=== PATIENT | female | born 1945 | race African-American/Black ===

== ENCOUNTER → 2020-09-23 | Outpatient (CLI) | payer OTHER | LOC: SJCVC 13:11 | PROVIDERS: ATTEND Internal Medicine | DX: I10 Essential (primary) hypertension (principal); R00.0 Tachycardia, unspecified; E78.5 Hyperlipidemia, unspecified; I05.9 Rheumatic mitral valve disease, unspecified; D50.9 Iron deficiency anemia, unspecified; Z86.16 Personal history of COVID-19; E03.9 Hypothyroidism, unspecified; Z90.710 Acquired absence of both cervix and uterus; Z98.890 Other specified postprocedural states; Z88.8 Allergy status to other drugs, medicaments and biological substances; Z79.82 Long term (current) use of aspirin; Z79.899 Other long term (current) drug therapy; Z87.891 Personal history of nicotine dependence; Z82.49 Family history of ischemic heart disease and other diseases of the circulatory system ==

== ENCOUNTER → 2020-10-07 | Outpatient (CLI) | payer OTHER | LOC: SJCVCIMAG 09-30 11:06 | PROVIDERS: ATTEND Internal Medicine | DX: I08.3 Combined rheumatic disorders of mitral, aortic and tricuspid valves (principal); I11.9 Hypertensive heart disease without heart failure; Z79.899 Other long term (current) drug therapy; Z86.16 Personal history of COVID-19 ==

== ENCOUNTER 2021-04-20 07:30 | Inpatient (IN) | payer OTHER ==
[~2021-04-20] VITALS: Ht 165.1 cm; Wt 88.4 kg
[2021-04-20 07:50] VITALS: BP 157/81
[2021-04-20 08:15] LABS: ABSOLUTE NEUTROPHILS 5.7 thou/uL (1.4-8.2); BASOPHILS 0.7 % (0.0-2.0); EOSINOPHILS 1.2 % (0.0-3.0); HEMATOCRIT 36.7 % (37.0-47.0); HEMOGLOBIN 11.9 gm/dL (12.0-15.0); LYMPHOCYTES 26.7 % (24.0-44.0); MCHC 32.5 g/dL (28.0-37.0); MCV 92.3 fL (80.0-100.0); MONOCYTES 7.5 % (1.0-8.0); PLATELET COUNT 240 thou/uL (150-400); POLYS 63.9 % (36.0-66.0); RBC 3.98 mil/uL (4.20-5.00); RDW 14.3 % (10.5-14.5); WBC 8.9 thou/uL (4.0-11.0)
[2021-04-20 08:23] LABS: CALCIUM 9.3 mg/dL (8.5-10.1); CREATININE 0.8 mg/dL (0.6-1.0); POTASSIUM 3.9 mmol/L (3.5-5.1)
[2021-04-20 08:30] LABS: ALBUMIN 3.2 g/dL (3.4-5.0); TOTAL BILIRUBIN 0.3 mg/dL (0.2-1.0); TOTAL PROTEIN 7.5 g/dL (6.4-8.2)
[2021-04-20 09:56] LABS: URINE BILIRUBIN NEGATIVE (Negative); URINE BLOOD NEGATIVE (Negative); URINE CLARITY CLEAR; URINE COLOR YELLOW; URINE GLUCOSE-RANDOM* NEGATIVE (Negative); URINE KETONES NEGATIVE (Negative); URINE LEUKOCYTES-REFLEX NEGATIVE (Negative); URINE NITRITE-REFLEX NEGATIVE (Negative); URINE PROTEIN (DIPSTICK) NEGATIVE (Negative); URINE UROBILINOGEN 0.2 E.U./dl (0.2-1.0)
--- NOTE | 2021-04-21 04:49 | NUR ---
ASSUMED CARE OF PATIENT AT 2030. PATIENT RESTING IN BEDSIDE CHAIR WITH DAQUGHTER AT HER SIDE. PATIENT IS AOOX4. STATES THAT SHE IS FEELING OKAY AT THIS TIME BUT PAIN IN HER ABDOMEN COMES AND GOES. HER VITAL SIGNS ARE STABLE. PATIENT IS COOPERATIVE AND FOLLOWING COMMANDS. NOT LONG AFTER RN LEFT THE ROOM PATIENTS DAUGHTER CAME OUT AND SAID THAT HER MOTHER WAS NOW HURTING. PT STATES THAT SHE STARTED TO HAVE A SGARP PAIN IN HER EPIGASTRIC REGION. PRN MEDICATION ADMINISTERED. PATIENT WAS ASSISTED TO HER BED PATIENT HAS SLOW SHUFFLING GATE. NO DISTRESS NOTED AT THIS TIME. WILL CONTINUE TO MONITOR.
[2021-04-21 05:27] LABS: CALCIUM 8.7 mg/dL (8.5-10.1); CREATININE 0.6 mg/dL (0.6-1.0); POTASSIUM 3.7 mmol/L (3.5-5.1)
[2021-04-21 05:34] LABS: HEMATOCRIT 33.4 % (37.0-47.0); HEMOGLOBIN 11.2 gm/dL (12.0-15.0); MCH 30.6 pg (26.0-34.0); MCHC 33.4 g/dL (28.0-37.0); MCV 91.8 fL (80.0-100.0); RBC 3.64 mil/uL (4.20-5.00); WBC 6.5 thou/uL (4.0-11.0)
[2021-04-21 09:34] VITALS: BP 155/67
[2021-04-21 20:23] VITALS: BP 160/71
--- NOTE | 2021-04-22 02:14 | NUR ---
ASSUMED CARE OF PT AT 1900. ASSESSED AT START OF SHIFT. PT RESTING IN BED. NG TUBE TO RT NARES ON LOW INT SUCTION. NPO MAINTAINED. FOLLEY INTACT TO D/D/ IV IN PLACE AND FLUIDS INFUSING. MORPHINE GIVEN FOR ABD PAIN. DRESSING C/D/I. WILL CONT WITH POC TILL EOS.
[2021-04-22 03:32] VITALS: BP 124/52
[2021-04-22 07:14] VITALS: BP 142/63
--- NOTE | 2021-04-22 09:31 | NUR ---
Chart review, CM visited with patient at bedside, noted she has ng with some green Drainage in tubing. Intro to cm and dcp. Sara a & o x 3, pleasant with some forgetfulness at time. Lives at [facility] on 1st floor 6 steps to enter or use the elevator. Have cane and 2 or 3 walkers, one was my sons who passed about this past January 2021, cm passed on support and active listen during visit. Independent in apartment, no longer drive, sergey marroquin drives me places and takes me to appointments. not vaccinated for covid, had covid in the past. no skilled rehab in the past, ok with [facility] is who had in the past per Sara. CM spoke with sergey marroquin # [phone] via phone call, requested that with [facility] be [facility] up for dc. Possible ready for d/c on Sunday04/25/21. New orders for pt and ot. referral sent to [facility] phone # [phone], fax [phone]. DCP: home with [facility] , fax dc order and pt/ot eval notes on day of dc.
--- NOTE | 2021-04-22 10:21 | NUR ---
A/O X 4. 2L via nasal cannula. NG tube right nare- green drainage noted. 3 ABD lap sites covered, midline dressing dry, clean and intact. IV left Hand with NS @ 100 mls/hr. Her daughter came up to visit. Still NPO.
[2021-04-22 14:10] VITALS: BP 142/63
[2021-04-22 15:36] VITALS: BP 141/67
[2021-04-22 20:51] VITALS: BP 158/67
--- NOTE | 2021-04-23 01:32 | NUR ---
ASSESSED AT START OF SHIFT. PT RESTING IN BED. NG Tube TO RT NARES AND ON LOW INTERMITENT SUCTION. PT REQUESTED PAIN MEDS. IV MORPHINE GIVEN. FOLLEY INTACT. NPO MAINTAINED. FALL PREC IN PLACE AND CALL LIGHT AT REACH WILL CONT TO MONITOR.
[2021-04-23 07:15] VITALS: BP 152/78
--- NOTE | 2021-04-23 09:24 | NUR ---
Assumed care of pt at 0700. Pt a&ox4. Dressing c/d/i. NG tube in place. Low-intermittent suction. Fulton catheter in place. IVF infusing. NPO. Pain controlled. Call light within reach. Will continue to monitor.
[2021-04-23 09:36] LABS: ABSOLUTE NEUTROPHILS 12.9 thou/uL (1.4-8.2); BASOPHILS 0.1 % (0.0-2.0); HEMATOCRIT 32.4 % (37.0-47.0); HEMOGLOBIN 10.5 gm/dL (12.0-15.0); LYMPHOCYTES 9.7 % (24.0-44.0); MCH 29.8 pg (26.0-34.0); MCHC 32.5 g/dL (28.0-37.0); MCV 91.8 fL (80.0-100.0); MONOCYTES 6.6 % (1.0-8.0); PLATELET COUNT 221 thou/uL (150-400); POLYS 83.6 % (36.0-66.0); RBC 3.53 mil/uL (4.20-5.00); RDW 14.3 % (10.5-14.5); WBC 15.4 thou/uL (4.0-11.0)
[2021-04-23 09:48] LABS: CALCIUM 8.8 mg/dL (8.5-10.1); CREATININE 0.7 mg/dL (0.6-1.0); POTASSIUM 3.5 mmol/L (3.5-5.1)
[2021-04-23 09:56] LABS: ALBUMIN 2.2 g/dL (3.4-5.0); MAGNESIUM 1.8 mg/dL (1.8-2.4); TOTAL BILIRUBIN 0.4 mg/dL (0.2-1.0); TOTAL PROTEIN 6.5 g/dL (6.4-8.2)
[2021-04-23] MEDS ORDERED: BIMATOPROST2.5 ML OPHTHALMIC (13:45)
[2021-04-23] MEDS ORDERED: FLONASE 0.05%50 MCG NASAL (13:46)
[2021-04-23] MEDS ORDERED: BENICAR20 MG PO (13:46)
[2021-04-23] MEDS ORDERED: HYDROCHLOROTH12.5 M2 PO (13:46)
[2021-04-23] MEDS ORDERED: PROTONIX40 M2 PO (13:47)
[2021-04-23] MEDS ORDERED: KLOR-CON M2020 MEQ PO (13:47)
[2021-04-23] MEDS ORDERED: SIMVASTATIN80 MG PO (13:48)
[2021-04-23 15:30] VITALS: BP 154/78
[2021-04-23 19:40] VITALS: BP 190/97
[2021-04-24] VITALS (8 sets, daily range): BP systolic 141–176; BP diastolic 33–89
--- NOTE | 2021-04-24 02:16 | NUR ---
ASSUMED CARE OF PT AT 1900. BEDSIDE REPORT RECIEVED. INDIGO ASSESSMENT COMPLETE. PT C/O GENERALIZED MALAISE. PT FEBRILE AND MODERATELY HYPERTENSIVE, PRN TYLENOL AND HYRDALAZINE ADNMINISTERED C SCHEDULED MEDS. RECHECKED BP AND TEMP BP 148/87, T 98.9.HYPOACTIVE BS. NG TUBE REMOVED DURING DAY SHIFT. IVF RUNNING PER DAVID. PT ASSISTED C REPOSITIONING FOR COMOFORT. CALL LIGHT IN REACH.
[2021-04-24 05:30] LABS: ABSOLUTE NEUTROPHILS 10.5 thou/uL (1.4-8.2); BASOPHILS 0.2 % (0.0-2.0); HEMATOCRIT 33.2 % (37.0-47.0); HEMOGLOBIN 10.4 gm/dL (12.0-15.0); LYMPHOCYTES 9.8 % (24.0-44.0); MCH 29.1 pg (26.0-34.0); MCHC 31.5 g/dL (28.0-37.0); MCV 92.3 fL (80.0-100.0); MONOCYTES 4.1 % (1.0-8.0); PLATELET COUNT 260 thou/uL (150-400); POLYS 85.9 % (36.0-66.0); RBC 3.59 mil/uL (4.20-5.00); RDW 14.5 % (10.5-14.5); WBC 12.3 thou/uL (4.0-11.0)
[2021-04-24 06:06] LABS: ALBUMIN 2.1 g/dL (3.4-5.0); CALCIUM 8.8 mg/dL (8.5-10.1); CREATININE 0.7 mg/dL (0.6-1.0); MAGNESIUM 1.9 mg/dL (1.8-2.4); PHOSPHORUS 1.5 mg/dL (2.5-4.9); POTASSIUM 3.4 mmol/L (3.5-5.1); TOTAL BILIRUBIN 0.4 mg/dL (0.2-1.0); TOTAL PROTEIN 6.6 g/dL (6.4-8.2)
[2021-04-24 08:56] LABS: BE(vivo) 4.4 mmol/L (-2 to +3); HCO3 28.6 mmol/L (22.0-26.0); PCO2 40.9 mmHg (35.0-45.0); pH 7.462 (7.360-7.450); sO2 90.1 % (92.0-98.0)
[2021-04-24 08:57] LABS: PO2 54.7 mmHg (80.0-100.0)
[2021-04-24 14:52] LABS: HEMATOCRIT 32.6 % (37.0-47.0); HEMOGLOBIN 10.7 gm/dL (12.0-15.0); MCH 30.3 pg (26.0-34.0); MCHC 32.8 g/dL (28.0-37.0); MCV 92.2 fL (80.0-100.0); RBC 3.53 mil/uL (4.20-5.00); RDW 14.3 % (10.5-14.5); WBC 9.9 thou/uL (4.0-11.0)
[2021-04-24 15:11] LABS: APTT 31.5 Seconds (24.5-32.8); INR 1.02; PROTIME 11.1 Seconds (10.5-12.1)
--- NOTE | 2021-04-24 15:46 | 2DMMODE ---
[facility] [place] [address] 2 D/M-MODE ECHOCARDIOGRAM Name: OSVALDO WAN Room #: 206-P ADM IN M.R.#: [id number] Admission: 04/20/21 Attend Phys: Abimael Cash MD Discharge: Date of : 43 Report #: [id number] THIS REPORT FOR: cc: Carine Zeng Beth RNP Lammoglia, Francisco J. MD ~ APPROVED REPORT Study performed: 04/24/2021 14:53:46 EXAM: Comprehensive 2D, Doppler, and color-flow Echocardiogram Patient Location: Bedside Room #: 206 Status: on-call BSA: 2.23 HR: 116 bpm BP: 141/67 mmHg Rhythm: Tachycardia Other Information Study Quality: Adequate Indications Abnormal ECG Elevated Troponin Tachycardia 2D Dimensions IVSd: 13.31 (7-11mm) LVOT Diam: 20.00 (18-24mm) LVDd: 44.30 mm PWd: 12.97 (7-11mm) Ascending Ao: 25.65 (22-36mm) LVDs: 28.96 (25-40mm) Aortic Root: 27.95 mm LV Single Plane 4CH: 61.78 % LV Single Plane 2CH: 62.87 % Volumes Left Atrial Volume (Systole) Single Plane 4CH: 55.66 mL Single Plane 2CH: 64.21 mL LA ESV Index: 38.00 mL/m2 Aortic Valve AoV Peak Jonathan.: 2.03 m/s AO Peak Gr.: 16.50 mmHg LVOT Max P.72 mmHg [facility] [address] [place] [address] 2 D/M-MODE ECHOCARDIOGRAM Name: OSVALDO WAN Room #: 206-P [facility] IN ..#: [id number] Admission: 04/20/21 Attend Phys: Kari Molina Discharge: Date of : 43 Report #: [id number] LVOT Max V: 1.30 m/s JENNA Vmax: 2.03 cm2 Mitral Valve E/A Ratio: 0.6 MV Decel. Time: 115.78 ms MV E Max Jonathan.: 0.86 m/s MV A Jonathan.: 1.39 m/s MV PHT: 33.58 ms IVRT: 86.51 ms TDI E/Lateral E': 14.33 E/Medial E': 12.29 Medial E' Jonathan.: 0.07 m/s Lateral E' Jonathan.: 0.06 m/s Pulmonary Valve PV Peak Jonathan.: 1.25 m/s PV Peak Gr.: 6.25 mmHg Tricuspid Valve TR Peak Jonathan.: 2.78 m/s TR Peak Gr.: 30.92 mmHg Left Ventricle The left ventricle is normal size. There is normal LV segmental wall motion. Mild concentric left ventricular hypertrophy. Left ventricular systolic function is normal. The left ventricular ejection fraction is within the normal range. LVEF is 60-65%. Mild diastolic dysfunction is present (impaired relaxation pattern). Right Ventricle The right ventricle is normal size. The right ventricular systolic function is normal. Atria The left atrium size is normal. The right atrium size is normal. Aortic Valve The aortic valve is normal in structure. No aortic regurgitation is present. There is no aortic valvular stenosis. Mitral Valve The mitral valve is normal in structure. There is no mitral valve regurgitation noted. No evidence of mitral valve stenosis. [facility] [place] [address] 2 D/M-MODE ECHOCARDIOGRAM Name: OSVALDO WAN Room #: 206-P [facility] IN .R.#: [id number] Admission: 04/20/21 Attend Phys: Kari Molina Discharge: Date of : 43 Report #: [id number] Tricuspid Valve The tricuspid valve is normal in structure. Trace tricuspid regurgitation. Tricuspid regurgitant jet is 31 mmHg. Unable to assess PA pressure. Pulmonic Valve The pulmonary valve is normal in structure. There is no pulmonic valvular regurgitation. Great Vessels The aortic root is normal in size. Ascending aorta is not well visualized. IVC is not well visualized. Pericardium There is no pericardial effusion. <Conclusion> The left ventricle is normal size. Mild concentric left ventricular hypertrophy. There is normal LV segmental wall motion. LVEF is 60-65%. The right ventricle is normal size. The aortic valve is normal in structure. The mitral valve is normal in structure. The tricuspid valve is normal in structure. Trace tricuspid regurgitation. Tricuspid regurgitant jet is 31 mmHg. Unable to assess PA pressure. The pulmonary valve is normal in structure. The aortic root is normal in size. There is no pericardial effusion. <ELECTRONICALLY SIGNED> By: Db Cruz MD 04/24/21 1546 1546 1546 Db Cruz MD /INF
[2021-04-24 16:02] LABS: CALCIUM 8.7 mg/dL (8.5-10.1); CREATININE 0.7 mg/dL (0.6-1.0); MAGNESIUM 1.9 mg/dL (1.8-2.4); PHOSPHORUS 3.2 mg/dL (2.6-4.7); POTASSIUM 3.5 mmol/L (3.5-5.1)
--- NOTE | 2021-04-24 16:48 | NUR ---
DISCUSSED PICC PLACEMENT, RISKS AND BENIFITS WITH THE PATIENT AND HER DAUGHTER. THE BOTH VERBALIZED UNDERSTANDING. THE RIGHT BASILIC VEIN WAS WIDLEY PATENT. A #5F DOUBLE LUMEN PICC WAS PLACED AFTER A BEDSIDE TIMEOUT WAS COMPLETED PER HOSPITAL POLICY. THE LINE WAS TRIMMED TO 46CM AND ADVANCED TO 3CM EXTERNAL WITHOUT DIFFICULTY. THE LINE WAS CONFIRMED AT 3CM EXTERNAL WITH SHERLOCK 3CG. LINE WAS RELEASED FOR USE
[2021-04-24 17:16] LABS: HEMATOCRIT 26.4 % (37.0-47.0); HEMOGLOBIN 8.8 gm/dL (12.0-15.0)
--- NOTE | 2021-04-24 18:23 | O ---
[facility] [place] [address] OPERATIVE REPORT Name: OSVALDO WAN Room #: 206-P ADM IN M.R.#: [id number] Admission: 04/20/21 Attend Phys: Abimael Cash MD Discharge: Date of : 43 Report #: [id number] THIS REPORT FOR: cc: Carine Zeng Beth RNP Patterson, Jonathan D. MD ~ DATE OF SERVICE: 04/21/2021 PREOPERATIVE DIAGNOSIS: Small-bowel obstruction. POSTOPERATIVE DIAGNOSIS: Small-bowel obstruction. OPERATIONS: 1. Diagnostic laparoscopy. 2. Exploratory laparotomy. 3. Small bowel resection with single anastomosis. 4. Open repair of recurrent incarcerated ventral incisional hernia without mesh. SURGEON: Silver Tracy MD ANESTHESIA: General. ESTIMATED BLOOD LOSS: Minimal. SPECIMENS: 1. Small bowel. 2. Intraabdominal mesh. DESCRIPTION OF PROCEDURE: After informed consent was obtained, the patient was brought to the operating room and placed supine. SCDs were placed and working, preoperative antibiotics were administered, general anesthesia was induced. The abdomen was prepped and draped in the usual sterile fashion. A 5 mm incision was made in the left upper quadrant. A 5 mm trocar was placed under direct vision. Pneumoperitoneum was established. A two left-sided 5 mm trocars were placed. I was able to visualize the small bowel. I ran the small bowel proximally and distally. In the lower abdomen in the midline, there was small bowel adherent to a mass. This mass ended up being a meshoma. At this point, I elected to remove the laparoscope and open the procedure. The laparoscope was then removed. I made a midline incision from above the umbilicus down toward the pubis. The fascia was incised. At this point, I was able to run the bowel proximally and distally from the cecum to the ligament of Treitz. In the distal jejunum, there was a wad of small bowel that was adherent to exposed mesh. Pictures were taken of this. The mesh was wadded up into a ball and exposed inside the peritoneal cavity. I was able to free up the mesh [facility] [address] [place] [address] OPERATIVE REPORT Name: OSVALDO WAN Room #: 206-P ADM IN M.R.#: [id number] Admission: 04/20/21 Attend Phys: Abimael Cash MD Discharge: Date of : 43 Report #: [id number] from the abdominal wall by sharply dissecting away using heavy scissors. There was no way that the bowel could be preserved with this mesh. Therefore, I elected to resect this segment. The small bowel was then transected proximally and distally. Distally, there was approximately 20 cm left before I reached the cecum. Proximally, there was approximately 150 cm of small bowel from the ligament of Treitz down to the area of the meshoma. This was stapled with a TALITA blue load stapler. I then ligated the mesentery using the LigaSure device and then specimens were sent off. A ojvo-mz-talo functional end-to-end anastomosis of the small bowel was undertaken. This was done with a TALITA blue load 75 stapler. The bowel was brought into apposition in [id number] and stapled. The common enteroenterostomy was stapled with a TALITA blue load stapler as well. The abdomen was then copiously irrigated with normal saline. I then reapproximated the fascia using #1 looped PDS. This closed the recurrent hernia without mesh. I did not think it would be safe to place mesh given that there was some spillage of bowel contents. The skin was then closed with mane. Sterile dressings were applied. COMPLICATIONS: None. DISPOSITION: The patient was taken to recovery in satisfactory condition. <ELECTRONICALLY SIGNED> By: Silver Tracy MD 04/24/21 1823 1816 1835 Silver Tracy MD /nt
--- NOTE | 2021-04-24 18:23 | NUR ---
Received pt to room 206 from 4S. Tele monitor placed, educated to rules of the floor. Pt A&O x4, on 5L NC sating 100%. Pt spitting up dark green saliva. Report pain 5/10 in abdominal area. Pt began puking coffee-ground emesis. Dr. Houser on floor & notified. Tachy on monitor, resp rate increased. Pt sent for STAT CTA which showed small Rt lower lobe PE; Venous duplex of LE neg for DVT; echocardiogram ordered which showed no acute findings. Pt sent for STAT EGD, removed 800mL coffee-ground fluid. Received pt back from EGD, stating she felt better, decreased O2 to 2L NC, sating 100%, resp rate down. Pt getting frequent hiccups which is hurting incision site, given PRN pain medication. Fulton in place & patent w/ tea colored urine. All questions answered at this time.
[2021-04-25] VITALS (8 sets, daily range): BP systolic 124–167; BP diastolic 64–121
[2021-04-25 00:16] LABS: ICTOTEST (BILI CONFIRMATORY) Negative (Negative); URINE BILIRUBIN NEGATIVE (Negative); URINE BLOOD TRACE (Negative); URINE CLARITY SL CLOUDY; URINE COLOR YELLOW; URINE GLUCOSE-RANDOM* NEGATIVE (Negative); URINE KETONES 2+ (Negative); URINE LEUKOCYTES-REFLEX NEGATIVE (Negative); URINE NITRITE-REFLEX NEGATIVE (Negative); URINE PROTEIN (DIPSTICK) 2+ (Negative); URINE UROBILINOGEN 0.2 E.U./dl (0.2-1.0)
[2021-04-25 00:33] LABS: CASTS None Seen /LPF (None Seen); MUCUS 0-3 Light strn/LPF (None Seen); SQUAMOUS 4-10 Moderate /LPF (0-3); URINE RBC 1-2 Rare /HPF (NONE SEEN); URINE WBC-REFLEX 0-5 Rare /HPF (0-5)
[2021-04-25 00:34] LABS: AMORPHOUS URATES Few /LPF (None Seen); BACTERIA-REFLEX 1-9 Few /HPF (None Seen); CRYSTALS None Seen /LPF (None Seen)
[2021-04-25 06:34] LABS: HEMATOCRIT 29.4 % (37.0-47.0); HEMOGLOBIN 9.7 gm/dL (12.0-15.0); MCH 30.3 pg (26.0-34.0); MCV 91.9 fL (80.0-100.0); RBC 3.2 mil/uL (4.20-5.00); RDW 14.5 % (10.5-14.5); WBC 7.2 thou/uL (4.0-11.0)
[2021-04-25 06:47] LABS: ALBUMIN 1.9 g/dL (3.4-5.0); CALCIUM 8.8 mg/dL (8.5-10.1); CREATININE 0.7 mg/dL (0.6-1.0); MAGNESIUM 2.3 mg/dL (1.8-2.4); PHOSPHORUS 2.8 mg/dL (2.5-4.9); POTASSIUM 3.6 mmol/L (3.5-5.1); TOTAL BILIRUBIN 0.3 mg/dL (0.2-1.0); TOTAL PROTEIN 6.5 g/dL (6.4-8.2)
--- NOTE | 2021-04-25 07:25 | NUR ---
SLEPT PART OF SHIFT. MOVES AROUND IN BED AND CAN TURN SELF. 2300 STAT ORDERS FROM COMPLETED, EKG DONE AND SHOWN TO COVER MAKER. SEVERE NAUSEA AND ZOFRAN ORDERED. QTC 400'S. DENIES COMPLAINTS OF PAIN OR NEED FOR ANY MEDICATION. N/V ON AND OFF THIS NOC WITH RELIEF FROM MEDS. COVER MAKER KEPT UPDATED ON STATUS. STATES FEELS BETTER THIS AM. WORKING ON GOALS AND PLAN OF CARE FOR NOC. CONTINUE TO ASSES CLOSELY.
--- NOTE | 2021-04-25 18:35 | NUR ---
PATIENT STARTED HAVING NAUSEA THIS PM. ZOFRAN PRN GIVEN AND IT WAS SOMEWHAT EFFECTIVE. PT IS NOW RESTING IN BED. PLEASANT WITH CARE. WILL CONT PLAN OF CARE.
[2021-04-25 23:30] LABS: HEMATOCRIT 30.4 % (37.0-47.0); HEMOGLOBIN 9.7 gm/dL (12.0-15.0)
[2021-04-26] VITALS (7 sets, daily range): BP systolic 124–185; BP diastolic 58–78
[2021-04-26 01:13] LABS: CALCIUM 9.2 mg/dL (8.5-10.1); CREATININE 0.7 mg/dL (0.6-1.0); MAGNESIUM 1.9 mg/dL (1.8-2.4); PHOSPHORUS 2.4 mg/dL (2.6-4.7); POTASSIUM 3.6 mmol/L (3.5-5.1)
--- NOTE | 2021-04-26 03:30 | NUR ---
2008 HR 120-130'S MOST OF DAY. NOTIFIED DR. OLIVAREZ AND RESTARTED METOPROLOL IVP DUE TO NPO. PATIENT REMAINS NAUSEATED. 2009 MESSAGE TO CALL DAUGHTER. DAUGHTER UPSET WITH BATTERY RECHARGER FROM DAY SHIFT. SPOKE WITH HER FOR 15 MIN AND REASSURED WOULD GIVE INFOR TO DAY NURSE AND DREDGE OPERATOR. DAUGHTER THANKED NURSE FOR TIME AND LISTENING. 0115 N/V LARGE AMOUNT BILE LIQUID EVERY WHERE. NOTIFIED OIL HEATERMAN AND ONE TIME DOSE COMPAZINE GIVEN. 0330 SLEEPING WITHOUT COMPLAINTS AT THIS TIME. DENIES NEED FOR PRESENT MEDICATIONS. ENCOURAGED TO TAKE SIPS ONLY OF LIQUIDS. WORKING ON GOALS AND PLAN OF CARE FOR NOC. CONTINUE TO ASSES CLOSELY.
--- NOTE | 2021-04-26 07:34 | EKG ---
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 : 1945 Requested By: Nivia Houser Order Number: [id number] : Barry Fraser Measurements Intervals [place] Rate: 118 P: 78 VT: 146 QRS: 30 QRSD: 85 T: -21 QT: 294 QTc: 412 Interpretive Statements Sinus tachycardia Probable left atrial enlargement Borderline T abnormalities, inferior leads No previous ECG available for comparison Electronically Signed On 04-26-2021 7:33:56 CDT by Barry Fraser [email or web address] <ELECTRONICALLY SIGNED> By: Barry Fraser MD, [facility] 04/26/21 0733 1218 1218 Barry Fraser MD, FACC /EPI
--- NOTE | 2021-04-26 07:37 | EKG ---
[address] [place] [address] ELECTROCARDIOGRAM REPORT Name: OSVALDO WAN Room #: 206-P ADM IN M.R.#: [id number] Admission: 04/20/21 Attend Phys: Abimael Cash MD Discharge: Date of : 43 Report #: [id number] 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 : 1945 Requested By: Nivia Houser Order Number: [id number] MD: Barry Fraser Measurements Intervals [place] Rate: 129 P: 147 AK: 124 QRS: 35 QRSD: 89 T: 54 QT: 426 QTc: 625 Interpretive Statements Sinus tachycardia Probable left atrial enlargement Probable inferior infarct Compared to ECG 04/23/2021 12:18:54 Myocardial infarct finding now present Sinus tachycardia no longer present T-wave abnormality no longer present Electronically Signed On 04-26-2021 7:36:48 CDT by Barry Fraser [email or web address] <ELECTRONICALLY SIGNED> By: Barry Fraser MD, [facility] 04/26/21 0736 2 2 Barry Fraser MD, [facility] /EPI
--- NOTE | 2021-04-26 07:38 | EKG ---
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: 2N : 1945 Requested By: Nivia Houser Order Number: [id number] MD: Barry Fraser Measurements Intervals [place] Rate: 114 P: [place]: QRS: 30 QRSD: 89 T: -45 QT: 309 QTc: 426 Interpretive Statements NSR Borderline repolarization abnormality IWMI, old Compared to ECG 04/24/2021 08:33:36 Prolonged QT interval no longer present Electronically Signed On 04-26-2021 7:38:48 CDT by Barry Fraser [email or web address] <ELECTRONICALLY SIGNED> By: Barry Fraser MD, [facility] 04/26/21 0738 00 00 Barry Fraser MD, FACC /EPI
[2021-04-26 17:23] LABS: HEMOGLOBIN 10.7 gm/dL (12.0-15.0)
--- NOTE | 2021-04-26 18:06 | PATH ---
[facility] [place] [address] PATHOLOGY RPT PROCEDURE Name: SARA ARAMBULA Room #: 206-P ADM IN M.R.#: [id number] Admission: 04/20/21 Date of : 43 Discharge: Report #: [id number] Path Case #: [id number] [facility] Accession Number: [id number] . 01 Material submitted: . PART A: small bowel - SMALL BOWEL PART B: abdomen - ABDOMINAL FOREIGN BODY . 01 Clinical history: . LAPAROSCOPY-DIAGNOSTIC LAPAROSCOPIC CONVERT TO OPEN SMALL BOWEL RESECTION SMALL BOWEL OBSTRUCTION RECURRENT VENTRAL HERNIA . 02 Diagnosis: A. Small bowel, resection: - Transmural defect, consistent with perforation as well as adherent small bowel pedroza. - Ischemic bowel along with congestion and extensive hemorrhage adjacent to perforation and adhesion. - Fibroadipose tissue adjacent to small bowel with mesh material and reparative changes. - Omental fat with reactive changes. - Three reactive lymph nodes. - Margins of resection showing viable mucosa. . B. Abdominal foreign body, removal: - 3.7 x 2.6 x 1.3 cm [place] mesh-like material. - 2.9 x 2.0 cm small bowel showing marked serositis as well as changes consistent with perforation. - Margins viable and unremarkable. (IUV/db; 04/26/2021) LBQ 04/26/2021 1721 Local . 02 Electronically signed: . Fanta Vaca MD, Pathologist NPI- [id number] . 01 Gross description: . A. The specimen is received in formalin, labeled "Sara Arambula, small bowel" and consists of an unoriented portion of small bowel (82.5 cm in length by 1.7 cm diameter), with one stapled end (inked black) and one open end (inked blue), with a moderate amount of attached fat and portion of omentum (7.5 x 7.0 x 3.8 cm). The serosa is predominantly york, smooth and dusky, with a charlton-brown and hemorrhagic dusky area (9.0 x 2.5 cm) that surrounds a heavily disrupted transmural defect (approximately 5.5 x [facility] [address] [place] [address] PATHOLOGY RPT PROCEDURE Name: SARA ARAMBULA Room #: 206-P ADM IN M.R.#: [id number] Admission: 04/20/21 Date of : 43 Discharge: Report #: [id number] Path Case #: [id number] 3.0 cm). . Adherent to the disrupted transmural defect is an additional small bowel segment (ends inked red, 11.6 cm in length by 2.0 cm diameter) with dusky and hemorrhagic serosa and both ends open. The adherent small bowel segment displays an area of self-adherence (0.9 x 0.4 cm). . Also present, adjacent to the disrupted transmural defect and additional small bowel segment, is a brown, yellow, indurated portion of hemorrhagic fat (0.9 x 3.0 x 2.4 cm). Sectioning through the indurated fat reveals densely fibrotic and markedly gritty cut surfaces. . The mucosa on the longer small bowel segment displays 2 ill-defined submucosal areas of hemorrhage (0.3 x 0.3 cm and 0.6 x 0.5 cm) which are located 3.7 cm from the area of disruption. The remaining mucosa is unremarkable. The omentum displays an adherent, hemorrhagic mesh-like material (2.9 x 2.0 x 1.0 cm). The remainder of the omentum is dusky and focally hemorrhagic but otherwise unremarkable. Two candidate lymph nodes are identified (0.2 x 0.2 x 0.2 cm and 0.4 x 0.4 x 0.4 cm). Photographs are taken, and account executive sales representative sections are submitted as follows: A1-A2: Resection margins from longer small bowel segment, submitted en face, represented to include the entirety of the open end (inked blue) A3: [place] small bowel segment ends, submitted en face, represented A4-A5: Full-thickness sections of longer small bowel segment adjacent to transmural defect, represented A6: Self-adherent area of shorter small bowel segment, represented A7-A8: Indurated fat to show proximity to longer small bowel segment, represented A9: Submucosal areas of hemorrhage, represented A10-A11: A contiguous section to show mesh-like material adherent to omentum and proximity to longer small bowel segment, represented (yellow ink on contiguous section junctions) A12: Omentum, represented A13: 1 bisected lymph node (not inked) and 1 intact lymph node (inked black) . B. The specimen is received in formalin, labeled "Sara Arambula, abdominal foreign body" and consists of an indurated [place] mesh-like material (3.7 x 2.6 x 1.3 cm) with adherent dusky, hemorrhagic and shaggy fat. . Also received in the same container is a portion of small bowel (2.9 cm in length by 2.0 cm in diameter) with abundant attached fat, one stapled end (inked black) and one open end (inked blue). The serosa is charl[place]-y[place] and hemorrhagic and displays an adherent brown, hemorrhagic mesh-like material (2.1 x 0.3 cm). The mucosa is unremarkable and no lymph nodes are identified. Licensed Bondsman sections are submitted as follows: B1: Indurated mesh-like material and attached fat, represented B2: Small bowel segment margins, submitted en face, [place] [address] PATHOLOGY RPT PROCEDURE Name: SARA ARAMBULA Kaylen Room #: 206-P ADM IN ..#: [id number] Admission: 04/20/21 Date of : 43 Discharge: Report #: [id number] Path Case #: [id number] B3: Section of small bowel segment to show adherent mesh-like material, represented (STEBBINS; 04/22/2021) DKA/DKA 04/26/2021 1517 Local . 02 Pathologist provided ICD-10: K92.2, K65.8 . 02 CPT . 550788, 717108 Specimen Comment: A courtesy copy of this report has been sent to [phone] Specimen Comment: [phone], Specimen Comment: Report sent to , DR CLANCY / DR MAK Performed at: [address], [place], [place] [id number] MD Misha Galicia MD Phone: [phone] Performed at: [address] [id number] MD Fanta Vaca MD Phone: [phone]
--- NOTE | 2021-04-26 20:00 | NUR ---
AT APPROX. 1600 WAS CALLED INTO ROOM BY PCT, PATIENT HAD WORKED WITH PHYSICAL THERAPY AND HAD CAUSED EXCESSIVE DRAINAGE FROM THE ABDOMEN, CAUSING SATURATION OF THE DRESSING. ASSESSEMNT AND DRESSING CHANGE COMPLETED, PATIENT STILL CONTINUOUS N/V WITH INABILITY TO KEEP ORAL FLUIDS DOWN. DR. MAK CALLED AND INFORMED PATIENT HAD BEEN VOMITING ALL DAY AND WHAT APPEARED TO BE LIGHT GREEN DISCHARGE COMING FROM THE ABDOMINAL INCISION. ORDERS FOR NG TUBE TO LIS AND STAT CT OF ABD/PELVIS WITH CONTRAST. NG PLACED AT 55 TO R NARE WITH 400 GREEN BILE IN RETURN.
[2021-04-27 00:30] VITALS: BP 124/58
[2021-04-27 03:20] VITALS: BP 137/59
[2021-04-27 06:51] LABS: HEMATOCRIT 27.5 % (37.0-47.0); MCH 29.9 pg (26.0-34.0); MCHC 32.6 g/dL (28.0-37.0); MCV 91.6 fL (80.0-100.0); RDW 14.4 % (10.5-14.5); WBC 8.9 thou/uL (4.0-11.0)
--- NOTE | 2021-04-27 06:52 | NUR ---
I have reviewed the documentation by Racheal Pena from 04/26/21 to 04/26/21 and I concur with it. PAUL MONAE
[2021-04-27 07:07] LABS: ALBUMIN 1.7 g/dL (3.4-5.0); CALCIUM 8.6 mg/dL (8.5-10.1); CREATININE 0.7 mg/dL (0.6-1.0); MAGNESIUM 1.7 mg/dL (1.8-2.4); PHOSPHORUS 2.6 mg/dL (2.5-4.9); POTASSIUM 3.3 mmol/L (3.5-5.1); TOTAL BILIRUBIN 0.2 mg/dL (0.2-1.0); TOTAL PROTEIN 5.9 g/dL (6.4-8.2)
[2021-04-27 07:50] VITALS: BP 141/69
--- NOTE | 2021-04-27 08:24 | NUR ---
SLEPT PART OF SHIFT. LESS NAUSEA PAST NG PLACED ON DAY SHIFT 04/26/21. DENIES NEED FOR PAIN MEDICATION. NG WITH LARGE AMOUNT OF BILE OUTPUT. WORKING ON GOALS AND PLAN OF CARE FOR NOC. ASSIST TO REPOSITION NEEDED. CONTINUE TO FERMIN HAN.
--- NOTE | 2021-04-27 09:47 | P ---
[facility] [place] [address] PROCEDURE REPORT Name: OSVALDO WAN Room #: 206-P [facility] IN M.R.#: [id number] Admission: 04/20/21 Attend Phys: Abimael Cash MD Discharge: Date of : 43 Report #: [id number] THIS REPORT FOR: cc: Carine Zeng Beth RNP McElhinney, Christian C. MD ~ cc: Nivia Houser MD, Dr. Tracy DATE OF SERVICE: 04/24/2021 PROCEDURE PERFORMED: Upper endoscopy with biopsies. HISTORY OF PRESENT ILLNESS: The patient is a 75-year-old female with recent small-bowel obstruction requiring surgery on 04/21/2021. Status post partial small bowel resection with hernia repair. The patient began having coffee-ground emesis today. She was just diagnosed with a pulmonary embolus. She is not on blood thinners at this time. Her most recent hemoglobin is 10.4. Plan is for upper endoscopy. DESCRIPTION OF PROCEDURE: The risks and benefits of the procedure were explained to the patient, those risks including but not limited to bleeding, perforation and the risk of sedation. She understood these risks and gave informed consent. Sedation was given using propofol per anesthesia. Next, using a standard Olympus upper endoscope, the scope was placed in the patient's mouth and advanced under direct vision through the esophagus, stomach and into the third portion of the duodenum. The larynx was normal in appearance. The upper and mid esophagus was normal. In the distal esophagus, grade D erosive esophagitis was noted with friable mucosa. No active bleeding noted. Upon entering the stomach, a small hiatal hernia was noted. There was moderate amount of liquid with old black appearing blood in the liquid in her stomach. I aspirated approximately 300 mL of the liquid out of her stomach and cleared the stomach. In the gastric body, there were 2 ulcers, one approximately 1.5 cm, the other 1 cm in diameter. They were fairly clean white base. There was no visible vessel or active bleeding. The gastric antrum was normal. The pylorus was normal and patent. The duodenal bulb was normal. The first and second portion were normal. However, there was more liquid in the duodenum. I aspirated another 100 mL from the duodenum for a total of 400 mL aspirated. The scope was advanced as far as possible into the third portion of the duodenum. There were no abnormalities of the duodenum. No ulcerations noted. At this point, the scope was then brought back up into the patient's stomach and biopsies were obtained to rule out H. pylori. The scope was then withdrawn and the procedure terminated. The patient tolerated the procedure well. IMPRESSION: 1. Grade D erosive esophagitis. No active bleeding. Possible source of recent coffee-ground emesis. [facility] [address] [place] [address] PROCEDURE REPORT Name: OSVALDO WAN Room #: 206-P [facility] M.R.#: [id number] Admission: 04/20/21 Attend Phys: Abimael Cash MD Discharge: Date of : 43 Report #: [id number] 2. Small hiatal hernia. 3. Two gastric ulcers. No active bleeding. Also, possible source of recent coffee-ground emesis. RECOMMENDATIONS: 1. I would recommend leaving a nasogastric tube out at this time. 2. Continue PPI drip, which has been started today. 3. Continue to monitor hemoglobin closely. 4. Await biopsy results. 5. Would leave n.p.o. at this time except for possible ice chips. Thank you for allowing me to participate in the care. <ELECTRONICALLY SIGNED> By: Ronaldo Frost MD 04/27/2147 1300 02 Ronaldo Frost MD /nt
--- NOTE | 2021-04-27 09:47 | HC ---
[facility] [place] [address] CONSULTATION Name: OSVALDO WAN Room #: 206-P [facility] IN M.R.#: [id number] Admission: 04/20/21 Attend Phys: Abimael Cash MD Discharge: Date of : 43 Report #: [id number] THIS REPORT FOR: cc: Carine Zeng Beth RNP McElhinney, Christian C. MD ~ cc: Silver Tracy MD, Nivia Houser MD DATE OF SERVICE: 04/24/2021 HISTORY OF PRESENT ILLNESS: The patient is a 75-year-old female who was admitted through the Emergency Room on 04/20/2021 with abdominal pain, nausea and vomiting. A CT scan of the abdomen and pelvis on admission showed distal small bowel region with focal wall thickening and irregularity with apparent mass or focal inflammatory change, partial small-bowel obstruction associated fat-containing umbilical hernia was also noted. The patient apparently had mesh placed in the past for hernia repair. She underwent evaluation by Dr. Tracy, General Surgery and underwent a diagnostic laparoscopy, exploratory laparotomy, small bowel resection and repair of recurrent incarcerated ventral incisional hernia on 04/21/2021. Postoperatively, was doing fairly well, had a nasogastric tube in place. Dr. Houser, the hospitalist called me today stating that she began having significant coffee-ground type emesis today, multiple episodes. Her last hemoglobin was 10.4. Her initial hemoglobin was 11.9 on admission. She underwent a CT arteriogram of the chest, which did show a small lower lobe pulmonary emboli, dilated esophagus with fluid in the esophagus. Perihepatic ascites was also noted as well as minimal bibasilar pulmonary atelectasis and small pleural effusions. The patient is currently on 5 liters of nasal cannula oxygen. She was not on oxygen in the past. Apparently, no previous history of GI bleed. Protonix drip has been started. PAST MEDICAL HISTORY: Hypertension, hyperlipidemia, previous hysterectomy and ventral hernia repair, reportedly with mesh, recent small-bowel obstruction surgery as documented above. REVIEW OF SYSTEMS: As per HPI. SOCIAL HISTORY: She denies any tobacco or alcohol use. FAMILY HISTORY: Negative for colon cancer. CURRENT MEDICATIONS: Protonix drip has just been started, vancomycin, metoprolol, heparin has been discontinued, Rocephin, morphine p.r.n., Tylenol p.r.n. PHYSICAL EXAMINATION: VITAL SIGNS: Temperature is 37.1, pulse in the 120s, respiratory rate 22, [place] [address] CONSULTATION Name: OSVALDO WAN Room #: [facility] IN ..#: [id number] Admission: 04/20/21 Attend Phys: Abimael Cash MD Discharge: Date of : 43 Report #: [id number] pressure 143/33. GENERAL: She is alert and oriented x3, in no acute distress. HEENT: Sclerae nonicteric. Oropharynx clear. NECK: Supple. CARDIOVASCULAR: Regular rhythm. Tachycardic. CHEST: With decreased breath sounds in the bases bilaterally. She is currently on 5 liters of nasal cannula oxygen. ABDOMEN: Obese, soft. Dressing is in place from previous surgery. EXTREMITIES: No cyanosis, clubbing or edema. LABORATORY DATA: WBC is 12.3, hemoglobin 10.4, platelet count is 260. INR not been received. Sodium 145, potassium 3.4, chloride 108, bicarbonate 29, BUN 10, creatinine 0.7, glucose 155. Lactic acid level in the past was 1.5, total bilirubin 0.5, AST 12, ALT 15, alkaline phosphatase 62. Troponin today was 51, total protein 6.6, albumin 2.1, lipase 67. TSH 0.440. Chest x-ray earlier today shows cardiomegaly with mild vascular congestion, patchy bibasilar atelectasis, pneumonitis. ASSESSMENT AND PLAN: Upper gastrointestinal bleed. The patient with coffee-ground emesis, nausea, vomiting, recent small-bowel obstruction, status post surgical repair. She does report passing flatus. She had an NG in place, which is no longer in place at this time. Plan is for emergent upper endoscopy today. I will make further recommendations after endoscopy. Thank you for allowing me to participate in her care. <ELECTRONICALLY SIGNED> By: Ronaldo Frost MD 04/27/21 0947 1256 13 Ronaldo Frost MD /nt
--- NOTE | 2021-04-27 10:34 | NUR ---
Recommend advance tpn to goal 80ml/hr of standard tpn 15% dex, 5%AA and 2.9% lipids. Rec dc D5 fluids
[2021-04-27 11:46] VITALS: BP 146/66
[2021-04-27 15:36] VITALS: BP 156/72
[2021-04-27 17:40] LABS: HEMATOCRIT 26.7 % (37.0-47.0); HEMOGLOBIN 8.8 gm/dL (12.0-15.0)
--- NOTE | 2021-04-27 19:07 | PATH ---
[facility] [place] [address] PATHOLOGY RPT PROCEDURE Name: SARA WAN Kaylen Room #: 206-P [facility] IN M.R.#: [id number] Admission: 04/20/21 Date of : 43 Discharge: Report #: [id number] Path Case #: [id number] [facility] Accession Number: [id number] . 01 Material submitted: . gastrointestinal site - H PYLORI GASTRIC BIOPSY . 02 Diagnosis: Gastric mucosa, gastric, endoscopic biopsy: - Mild chronic active gastritis. - Negative for intestinal metaplasia or atrophy. - Negative for Helicobacter pylori on the properly controlled immunohistochemical stain (please see comment). (IUV:pressed or blown glass worker; 04/27/2021) MBR 04/27/2021 [facility]1 Local . 02 Comment: An intensive search for Helicobacter pylori-like organisms is negative. Absence of such organisms does not entirely exclude the possibility and may be due to sampling. Other possible etiologies may include chemical gastritis, autoimmune gastritis, gastritis associated with inflammatory bowel disease. Please correlate with clinical, endoscopic, and microbiological studies if clinically indicated. (IUV:pressed or blown glass worker; 04/27/2021) . 02 Electronically signed: . Fanta Vaca MD, Pathologist NPI- [id number] . 01 Gross description: . The specimen is received in formalin, labeled "Sara Wan, gastric biopsy". Received are three segments of pale york tissue ranging in size from 0.3-0.4 cm in maximum dimensions. The specimen is submitted entirely in cassette A1. (CAA; 04/26/2021) QAC/QAC 04/26/2021 0928 Local . 02 Pathologist provided ICD-10: K29.50 . 02 CPT . 554484, R79102 Specimen Comment: A courtesy copy of this report has been sent to [phone] Specimen Comment: Report sent to Performed at: [address], [place] [id number] [place] [address] PATHOLOGY RPT PROCEDURE Name: SARA WAN Room #: 206-P [facility] IN .R.#: [id number] Admission: 04/20/21 Date of : 43 Discharge: Report #: [id number] Path Case #: [id number] MD Misha Galicia MD Phone: [phone] Performed at: [address] [id number] MD Fanta Vaca MD Phone: [phone]
[2021-04-27 19:34] VITALS: BP 151/73
--- NOTE | 2021-04-27 20:04 | NUR ---
PT ALERT AND ORIENTED TIMES FOUR. VSS. CLINIMIX GTT INFUSING PER ORDER. NG TUBE TO RIGHT NARE TO LIWS. SANDOVAL TO DD. PT C/O PAIN PRN PAINMEDICATIONS GIVEN WITH GOOD RELEIF. DRESSING TO ABD CHANGED. PT DAUGHTER AT BEDSIDE TGHIS EVENING. WILL CONTINUE TO MONITOR.
--- NOTE | 2021-04-28 05:26 | NUR ---
Pt. rested quietly at intervals during th night when checked on during frequent rounds. She did c/o abdominal pain and adjustments made in pain meds (see cpoe). IVP pain med given (see emar) with some relief noted. She has had three loose stools during the night and jesse care given. NGT patent to the right nare. Bed alarm is on.
[2021-04-28 05:31] VITALS: BP 139/63
[2021-04-28 05:53] LABS: CALCIUM 8.4 mg/dL (8.5-10.1); CREATININE 0.6 mg/dL (0.6-1.0); MAGNESIUM 1.9 mg/dL (1.8-2.4); PHOSPHORUS 2.5 mg/dL (2.5-4.9); POTASSIUM 3.3 mmol/L (3.5-5.1)
--- NOTE | 2021-04-28 06:51 | NUR ---
I have reviewed the documentation by Racheal Pena from 04/27/21 to 04/27/21 and I concur with it. PAUL MONAE
[2021-04-28 07:29] VITALS: BP 138/63
--- NOTE | 2021-04-28 10:29 | NUR ---
ASSUMED CARE OF PT AT 0700. PT ALERT AND ORIENTED X4. OT IN ROOM TO WORK WITH PT AT 0845. PT TOLERATED WELL AND WAS ABLE TO ASSIST WITH BEDBATH. AT 1005 SPOKE TO IR STAFF REGARDING PT GETTING IVC FILTER PLACE. IR RN AT BEDSIDE AT 1010 SPEAKING TO PT ABOUT PROCEDURE. PT TAKEN TO IR AT 1014.
[2021-04-28 11:50] VITALS: BP 140/61
[2021-04-28 13:00] VITALS: BP 153/76
[2021-04-28 15:50] VITALS: BP 141/59
[2021-04-28 19:05] LABS: HEMATOCRIT 28.1 % (37.0-47.0); HEMOGLOBIN 9.3 gm/dL (12.0-15.0)
[2021-04-28 19:20] VITALS: BP 158/50
[2021-04-29 00:10] VITALS: BP 152/50
--- NOTE | 2021-04-29 03:20 | NUR ---
UPON SHIFT ASSESSMENT, PT AOX4. PT DENIES PAIN AND SOB WHILE ON ROOM AIR. PT TOLERATING PO INTAKE OF FLUIDS AND CLEAR LIQUID DIET WITHOUT ISSUE. PT WITHOUT NAUSEA OR EMESIS. PT INCONTINENT OF BOWEL, SANDOVAL IN PLACE AND PATENT. PT WITH SEVERAL LOOSE STOOLS, C.DIFF LAB REMAINS NOT INDICATED. PT RESTING IN BED THROUGHOUT SHIFT, FREQUENT REPOSITIONING ENCOURAGED, PT NOTED TO SLIGHTLY SHIFT ON HER OWN, REPOSITIONING ASSISTANCE PROVIDED. SENSATION INTACT, CAPILLARY REFILL LESS THAN 3SEC, FAINT PULSE NOTED TO RUE, PERIPHERAL PULSES PALPABLE OTHERWISE. PT ENCOURAGED TO NOTIFY STAFF FOR ALL NEEDS, CALL LIGHT WITHIN REACH BED ALARM ON, BED LOCKED IN LOWEST POSITION, FREQUENT MONITORING WILL CONTINUE.
[2021-04-29 04:46] VITALS: BP 159/54
[2021-04-29 05:56] LABS: HEMATOCRIT 26.1 % (37.0-47.0); HEMOGLOBIN 8.8 gm/dL (12.0-15.0)
[2021-04-29 08:30] VITALS: BP 149/62
[2021-04-29 10:36] LABS: CALCIUM 8.6 mg/dL (8.5-10.1); CREATININE 0.6 mg/dL (0.6-1.0); POTASSIUM 3.5 mmol/L (3.5-5.1)
[2021-04-29 11:30] VITALS: BP 145/56
--- NOTE | 2021-04-29 12:32 | NUR ---
Met with patient and discussed post acute care. patient to be evaled by 5N. Gave patient [facility] list to review. Patient hopeful for 5N.
[2021-04-29 16:52] VITALS: BP 135/56
--- NOTE | 2021-04-29 17:43 | NUR ---
Spoke with patient and dtr regarding post acute care and need for rehab. Interest in Rehab at [facility]. ThaoN rashard. Gave [facility] care list to patient. Discussed dtr to review list. No weekend dc anticipated.
[2021-04-29 19:53] VITALS: BP 152/52
[2021-04-30 00:20] VITALS: BP 142/51
--- NOTE | 2021-04-30 03:43 | NUR ---
PATIENT RESTING IN BED AAO X4. STATES THAT SHE IS HAVING SOME MILD ABDOMINAL PAIN. PT STATES THAT SHE HAS NOT HAD ANY ISSUES WITH N/V SINCE BEING UPGRADED TO CLEAR LIQUID DIET. PT HAS TPN INFUSINNG AT THIS TIME. INCISION IS INTACT WITH SMALL AMOUNT OF SHEIKH/YELLOW DRAINAGE. PATIENT VSS. PATIENT HAS HAD 2 HEAVY LOOSE BM. ALL FALLS/ SAFETY PRECAUTIONS IN PLACE. DENIES ANY OTHER NEEDS. WILL CONTINUE TO MONITOR FOR CHANGES IN STATUS.
[2021-04-30 04:20] LABS: HEMATOCRIT 25.6 % (37.0-47.0); HEMOGLOBIN 8.8 gm/dL (12.0-15.0); MCH 31.7 pg (26.0-34.0); MCHC 34.4 g/dL (28.0-37.0); MCV 92.2 fL (80.0-100.0); RBC 2.78 mil/uL (4.20-5.00); RDW 14.7 % (10.5-14.5)
[2021-04-30 04:46] LABS: CALCIUM 8.3 mg/dL (8.5-10.1); CREATININE 0.5 mg/dL (0.6-1.0); MAGNESIUM 1.7 mg/dL (1.8-2.4)
[2021-04-30 04:49] VITALS: BP 146/60
[2021-04-30 08:30] VITALS: BP 136/43
[2021-04-30 13:00] VITALS: BP 154/60
--- NOTE | 2021-04-30 15:15 | NUR ---
PT IS A&OX4. PT IS TOLERATING LIQUID DIET AT THIS TIME. DR. MAK TOOK SOME OLINDA OUT OF THE INCISION AND REDRESSED THE INCISION. SINCE CHANGING THE DRESSING, NO CURRENT DRAINAGE COMING THROUGH THE DRESSING. PT DID REQUEST PAIN MEDICATION AFTER HAVING SOME OF THE OLINDA REMOVED. GAVE PRN MORPHINE WHICH WAS EFFECTIVE PAIN RELIEF. DAUGHTER IS AT BEDSIDE.
[2021-04-30 16:15] VITALS: BP 141/62
[2021-04-30 20:22] VITALS: BP 140/45
--- NOTE | 2021-05-01 04:11 | NUR ---
Pt. rested quietly at intervals during the night when checked on during frequent rounds. She c/o abdominal pain ivp pain med given (see emar) with some relief noted. Incontinent of loose stool and jesse care was given. Turned and repositioned.
[2021-05-01 07:20] VITALS: BP 123/39
--- NOTE | 2021-05-01 13:21 | NUR ---
DR MAK AND RESIDENT CHANGED DRESSING MID ABDOMIAL INCISION.
--- NOTE | 2021-05-01 18:47 | NUR ---
SANDOVAL, IVF AND TPN DISCONTINUED TODAY, PT TOLERATING PO WELL AND HAVING LIQUID STOOL. UPDATED DAIGHTER AT BEDSIDE. WILL CONTINUE TO ASSESS.
[2021-05-01 20:20] VITALS: BP 116/59
[2021-05-02 03:00] LABS: CALCIUM 8.7 mg/dL (8.5-10.1); CREATININE 0.7 mg/dL (0.6-1.0); MAGNESIUM 1.6 mg/dL (1.8-2.4); PHOSPHORUS 3.8 mg/dL (2.6-4.7); POTASSIUM 4.1 mmol/L (3.5-5.1)
[2021-05-02 03:06] VITALS: BP 135/55
--- NOTE | 2021-05-02 03:28 | NUR ---
ASSUMED PT CARE AT 1900. PT IS ALERT AND ORIENTED X4. PT HAS OLINDA IN ABD MIDLINE WITH DEHISCENCE,X3 LAP SITES; DRSG ARE STILL INTACT. PT HAD A BM WHICH CAME OUT OF THE DEHISCENCE. WAS INFORMED AND PER HIS ORDERS AN NPO ORDER WAS PUT IN. PT WAS INFORMED ABOUT THE NEW DIET ORDER AND PT VERBALIZED UNDERSTANDING. PT HAS DRSG TO THE R SIDE OF THE NECK WHICH C/D/I. SUBSEQUENT BM ON THE SHIFT CAME FROM THE ANUS. PT HAS A PICC WITH 2 LUMENS TO THE ALTAGRACIA WHICH IS STILL PATENT. MEDS GIVEN PER SHANNON DOBBS. PT TOELRATING RA. FALL PRECAUTIONS IN PLACE. WILL CONTINUE TO MONITOR.
--- NOTE | 2021-05-02 08:25 | NUR ---
I have reviewed the documentation by Racheal Pena from 04/28/21 to 04/28/21 and I concur with it. PAUL MONAE
--- NOTE | 2021-05-02 14:56 | NUR ---
CONSULT FOR 5N COMPLETED ON THIS Pt BY JOSIAH QUINTANILLA NP. Pt IS CANDIDATE FOR ACUTE REHAB AND MEETS CRITERIA. SPOKE W/ JUAN FROM [facility] TO REQUEST AUTHORIZATION FOR ACUTE REHAB. REF #[id number]. FAXED CLINICAL INFORMATION TO [phone]. AWAITING RESPONSE REGARDING AUTHORIZATION DETERMINATION.
--- NOTE | 2021-05-02 16:29 | NUR ---
5N SUBMITTED FOR INSURANCE AUTH THIS DAY. CM FOLLOWING REGARDING DC PLANNING.
--- NOTE | 2021-05-02 16:54 | NUR ---
Assumed pt care this am vs stable, midline incision with mane in place in the upper midline and opened on the lower. Wound dressing and packing was soaked with serisanginous purulent drainage. seen by MD CT ordered. Wound dressing changed several times during the shift. Incontinent of both bowel and baldder. POC followed with no signs or verbalizations of distress noted.
[2021-05-02 19:10] VITALS: BP 132/51
--- NOTE | 2021-05-03 04:37 | NUR ---
ASSUMED PT CARE THIS EVENING. PT IS ALERT AND ORIENTED X4. DAUGHTER IS AT BEDSIDE. PT HAS ABD MIDLINE INCISIONS WITH OLINDA AT THE UPPER PART AND LOWER PART OPEN. DRSG WAS CHANGED WITH SEROSANGUINEOUS DISCHARGE; DIRECTOR PRODUCT MANAGEMENT ODOR WAS NOTED. PAIN WAS MANAGED BY PRN MEDS. PT DID NOT VERBALIZE ANY CONCERNS. VS ARE WITHIN NORMAL RANGE AND MEDS WERE GIVEN PER EMAR ORDERS. PT TOLERATING RA. FALL PRECAUTIONS IN PLACE. WILL CONTINUE TO MONITOR.
[2021-05-03 07:25] VITALS: BP 144/58
--- NOTE | 2021-05-03 09:09 | NUR ---
RECEIVED CALL FROM POLY AT [facility] [employer]. [facility] SPLICING TECHNICIAN IS REQUESTING A PEER TO PEER TO BE COMPLETED BY 1:00 TODAY BY CALLING [phone], OPTION 5. NO APPT NECESSARY FOR THIS CALL. ABOVE INFORMATION COMMUNICATED TO CASE MGMT. WILL CONTINUE TO FOLLOW FOR REHAB ADMISSION PENDING RESULTS OF PEER TO PEER DISCUSSION.
--- NOTE | 2021-05-03 13:10 | NUR ---
PEER TO PEER COMPLETED BY JOSIAH QUINTANILLA NP FOR ACUTE REHAB AUTHORIZATION. [facility] DENYING ACUTE REHAB BUT WILL AUTHORIZE SNF AND ARE GOING TO FAST TRACK IT. CASE MGMT UPDATED. THANK YOU FOR THIS REFERALL.
--- NOTE | 2021-05-03 14:32 | NUR ---
[facility] DENIED AUTH FOR 5N. PEER TO PEER DONE AND UPHELD. CM NOTIFIES PT'S DTR AND EMAILED HER THE [facility] SNF LIST AGAIN FOR REVIEW. HOSPITALIST INDICATED THAT HE WANTED PT'S WOUND CULTURED AND CONSULTED ID. DIANA FOLLOWING REGARDING DC PLANNING.
[2021-05-03 16:05] VITALS: BP 128/48
[2021-05-03 16:44] LABS: HEMATOCRIT 29.2 % (37.0-47.0); HEMOGLOBIN 9.3 gm/dL (12.0-15.0); MCH 29.3 pg (26.0-34.0); MCV 91.6 fL (80.0-100.0); RBC 3.18 mil/uL (4.20-5.00); RDW 14.5 % (10.5-14.5); WBC 10.8 thou/uL (4.0-11.0)
[2021-05-03 16:57] LABS: CALCIUM 8.3 mg/dL (8.5-10.1); CREATININE 0.8 mg/dL (0.6-1.0); POTASSIUM 4.1 mmol/L (3.5-5.1)
[2021-05-03 16:58] LABS: MAGNESIUM 1.5 mg/dL (1.8-2.4)
--- NOTE | 2021-05-03 19:04 | NUR ---
Assumed pt care this am, vs stable. Mid line incision with mane, open 2/[address] Foul purulent drainage noted, wound dressing and care done several time through out the day. MD informed of the larger open of the wound, was advised that wound dressing and packing be changed at least 3 x a day and prn when soiled. PICC line was pulled and is now a mid line and does not draw blood. Wopund cultures send to the lab. POC followed with no signs or verbalizations of distress noted. Pt is able to transfer from [facility] to the chair and commode, incontinent of both bowel and bladder. Endorsed to the night nurse.
[2021-05-03 20:00] VITALS: BP 131/48
--- NOTE | 2021-05-04 03:48 | NUR ---
Pt. rested quietly during the night when checked on during frequent rounds. She offers no c/o pain. Dressing changed to abdominal wound. Incontinent of bowel and bladder. Jeannie care given.
[2021-05-04 04:55] LABS: HEMATOCRIT 26.3 % (37.0-47.0); HEMOGLOBIN 8.7 gm/dL (12.0-15.0); MCH 30.3 pg (26.0-34.0); MCV 91.8 fL (80.0-100.0); RBC 2.87 mil/uL (4.20-5.00); RDW 14.7 % (10.5-14.5)
[2021-05-04 05:33] LABS: CALCIUM 8.1 mg/dL (8.5-10.1); CREATININE 0.8 mg/dL (0.6-1.0); POTASSIUM 3.7 mmol/L (3.5-5.1)
[2021-05-04 07:45] VITALS: BP 137/49
--- NOTE | 2021-05-04 16:28 | NUR ---
Assumed pt care this am vs stable. opened mid line incision draining yellowish brown purulent fluid. Frequent wound dressing changes done through out the shift. Diet and medications are well tolerated, POC followed with no signs or verbalizations of distress noted. Awaiting would cultures.
[2021-05-04 16:35] VITALS: BP 133/50
[2021-05-04 19:10] VITALS: BP 144/56
[2021-05-05 04:45] VITALS: BP 115/39
--- NOTE | 2021-05-05 04:57 | NUR ---
Assumed pt care at 1900. A/OX4,VSS. C/o pain to abd wound especially with activity. Dsg to wound changed at HS,brown drainage with slight smell noted on wound'pt tolorated well. Incontinent of B&B this shift,pericare done as needed as well as repositining. Medicated for pain with relief reported. Midline on RUE patent. Fall precautions in place,will continue to monitor pt.
[2021-05-05 05:08] LABS: HEMATOCRIT 25.7 % (37.0-47.0); HEMOGLOBIN 8.6 gm/dL (12.0-15.0); MCH 30.8 pg (26.0-34.0); MCHC 33.6 g/dL (28.0-37.0); MCV 91.6 fL (80.0-100.0); RBC 2.8 mil/uL (4.20-5.00); RDW 14.9 % (10.5-14.5); WBC 9.3 thou/uL (4.0-11.0)
[2021-05-05 05:19] LABS: CALCIUM 8.1 mg/dL (8.5-10.1); CREATININE 0.7 mg/dL (0.6-1.0); MAGNESIUM 1.8 mg/dL (1.8-2.4); POTASSIUM 3.7 mmol/L (3.5-5.1)
[2021-05-05 07:44] VITALS: BP 138/58
--- NOTE | 2021-05-05 11:45 | NUR ---
ASSUMED PT CARE THIS AM. PT A&OX4, ABLE TO MAKE NEEDS KNOWN. PATIENT REMAINS INCONTINENT OF BOWEL AND BLADDER. IV PATENT, MEDICATION INFUSING WITHOUT DIFFICULTY. PATIENT REPORTING NO PAIN. DRESSING TO ABDOMEN IS C/D/I. PATIENT REPORTS NO NUMBNESS OR TINGLING. PATIENT IS ON ROOM AIR. FALL PRECAUTIONS ARE IN PLACE, CALL LIGHT WITHIN REACH.
--- NOTE | 2021-05-05 16:35 | NUR ---
CM FOLLOWED UP WITH PT'S DTR AND SHE ASKED THAT REFERRAL BE SENT TO [facility] FOR REVIEW FOR POSSIBLE ADMISSION. AWAITING INPUT FROM GENERAL SURGERY AND ID. CM FOLLOWING REGARDING DC PLANNING.
[2021-05-05 18:54] VITALS: BP 144/52
[2021-05-06 05:19] LABS: HEMATOCRIT 25.1 % (37.0-47.0); HEMOGLOBIN 8.3 gm/dL (12.0-15.0); MCH 30.4 pg (26.0-34.0); MCHC 33.3 g/dL (28.0-37.0); MCV 91.4 fL (80.0-100.0); RBC 2.74 mil/uL (4.20-5.00); RDW 14.7 % (10.5-14.5); WBC 8.9 thou/uL (4.0-11.0)
[2021-05-06 05:40] LABS: CALCIUM 8.3 mg/dL (8.5-10.1); CREATININE 0.7 mg/dL (0.6-1.0); MAGNESIUM 1.7 mg/dL (1.8-2.4); POTASSIUM 3.4 mmol/L (3.5-5.1)
--- NOTE | 2021-05-06 06:21 | NUR ---
patient abd dressing changed x2, serosanguineous drainage noted. wound bed is pink in color, no s/s of infection. patient incontinent this shift pericare and barrier cream applied as needed. pain controlled this shift. fall precaution in place. patient in bed asleep at this time breathing regular and unlaboured.
[2021-05-06 07:26] VITALS: BP 144/55
--- NOTE | 2021-05-06 11:30 | NUR ---
[facility] LOOKING LIKE THEY CAN ACCEPT PT BUT THEY WANT TO KNOW DURATION OF IV ZOSYN UPON DC. CM WAITING ON CARE TEAM TO CLARIFY TO CONVEY TO [facility]. CM FOLLOWING REGARDING DC PLANNING.
[2021-05-06 15:47] VITALS: BP 129/41
--- NOTE | 2021-05-06 18:15 | NUR ---
TOOK ON CARE OF PT AT 0700. THROUGHOUT THE DAY PT RESTED QUIETLY WITH NO CONCERNS, VSS. DRAINAGE FROM MIDLINE DEHISCENCE CONTINUES TO BE PERSISTENT. MODERATE AMOUNT OF BROWN MUCOID DRAINAGE. ID MD MCADAMS WAS ABLE TO VIEW DRAINAGE AND DEHISION WITH RN AROUND 1700 PRIOR TO SECOND DRESSING CHANGE. PT CONTINUES TO VOICE NO PAIN, BUT IS INCONTINENT OF BOWEL AND BLADDER AND HAS HAD 3 BMS TODAY. WILL CONT TO MONITOR.
[2021-05-06 20:06] VITALS: BP 132/45
--- NOTE | 2021-05-07 02:57 | NUR ---
patient aox4 makes needs known. patient incontient this shift pericare and barrier cream applied as needed. patient denied pain or discomfort.patient is able to turn herself every 2 hours[address] patient has a ct scan in the am, patient npo since midnight. fall precaution in place. patient in bed asleep at this time breathing regular and unlaboured.
[2021-05-07 05:49] VITALS: BP 131/54
[2021-05-07 06:24] LABS: HEMATOCRIT 26.5 % (37.0-47.0); HEMOGLOBIN 8.5 gm/dL (12.0-15.0); MCH 29.6 pg (26.0-34.0); MCHC 32.1 g/dL (28.0-37.0); MCV 92.1 fL (80.0-100.0); RBC 2.88 mil/uL (4.20-5.00); RDW 14.5 % (10.5-14.5); WBC 8.3 thou/uL (4.0-11.0)
[2021-05-07 06:38] LABS: CALCIUM 8.6 mg/dL (8.5-10.1); CREATININE 0.6 mg/dL (0.6-1.0); MAGNESIUM 1.7 mg/dL (1.8-2.4); POTASSIUM 3.7 mmol/L (3.5-5.1)
--- NOTE | 2021-05-07 15:33 | NUR ---
TODAY THIS PT HAS BEEN IN HER ROOM TOLERATING HER FLUIDS WELL MEDICATIONS WELL. SHE HAS HAD A CT TODAY AND TOLERATED IT WELL. HER DAUGHTER STOPPED BY AND DISCUSSED WHAT SHE WANTS TO DO WITH HER MOM BY STATING, "dEPENDING ON WHAT THE PHYSICIANS PLAN IS AFTER THE CT I MAY TAKE HER OUT OF THIS HOSPITAL AND TAKE HER TO [facility] INSTEAD BECAUSE OF THE SURGICAL CARE THAT WAS DONE AND THE INFECTION THAT SHE HAS." OTHERWISE THE PT IS DOING WELL WITH NO COMPLAINTS AND SHE HAS HAD A FEW BOWEL MOVEMENTS TODAY.
[2021-05-07 16:36] VITALS: BP 149/69
[2021-05-07 19:47] VITALS: BP 139/47
--- NOTE | 2021-05-08 04:11 | NUR ---
Pt. rested quietly at intervals during the night when checked on during frequent rounds. She was given pain meds (see emar) for c/o abdominal pain with some reief noted. Abdominal wound with some saturation and new dressing applied.
[2021-05-08 07:28] VITALS: BP 146/64
--- NOTE | 2021-05-08 17:08 | NUR ---
TODAY THIS PT HAS BEEN SITTING UP IN THE CHAIR WELL USING THE BSC TODAY WITH LITTLE TO NO ISSUE. SHE HAS BEEN TOLERATING HER FLUIDS WELL MEDICATIONS. SHE HAS A NEW IV IN HER LEFT AC AND HER MIDLINE IS OUT. OTHERWISE SHE AWAITS FOR THE NEXT PLAN.
[2021-05-08 19:53] VITALS: BP 139/70
--- NOTE | 2021-05-09 02:33 | NUR ---
CARE ASSUMED AT 1900 PATIENT WAS SITTING AT THE SIDE OF THE BED.PATIENT AOX4 MAKES NEEDS KNOWN. PAIN MEDS GIVEN BEFORE DRESSING CHANGE.PATIENT ABD MIDLINE DEHISCENE WOUND DRESSING DONE,SEROUS DRAINAGE, NO ODOR NOTED. FALL PRECAUTION IN PLACE. PATIENT IN BED ASLEEP AT THIS TIME BREATHING REGULAR AND UNLABOURED.
[2021-05-09 05:42] LABS: HEMATOCRIT 26.8 % (37.0-47.0); HEMOGLOBIN 8.7 gm/dL (12.0-15.0); MCH 29.7 pg (26.0-34.0); MCHC 32.5 g/dL (28.0-37.0); MCV 91.2 fL (80.0-100.0); RBC 2.94 mil/uL (4.20-5.00); RDW 14.8 % (10.5-14.5); WBC 7.5 thou/uL (4.0-11.0)
[2021-05-09 06:05] LABS: CALCIUM 8.3 mg/dL (8.5-10.1); CREATININE 0.7 mg/dL (0.6-1.0); MAGNESIUM 1.5 mg/dL (1.8-2.4)
--- NOTE | 2021-05-09 13:08 | NUR ---
TOOK ON CARE OF PT AT 0700. THROUGHOUT THE DAY PT HAD FEW COMPLAINTS. AMBULATED EXTREMELY WELL WITH THERAPY TO THE BATHROOM AND WAS ABLE TO PIVOT WELL THROUGHOUT THE DAY. NO COMPLAINTS OF PAIN EXCEPT DURING DRESSING CHANGE WITH ID MD MCADAMS. GOOD APPETITE. FALL PRECAUTIONS IN PLACE. IS MUCH MORE CONTINENT TODAY THAN BEFORE BUT IS STILL HAVING LOOSE BMS. WILL CONT TO MONITOR.
--- NOTE | 2021-05-09 15:10 | NUR ---
CARE TEAM INDICATED THAT PT MAY BE MEDICALLY STABLE TO DC TO [facility] TOMORROW. CM NOTIFIED ADMISSIONS TEAR AT [facility]. CM FOLLOWING REGARDING DC PLANNING.
[2021-05-09 18:00] VITALS: BP 139/70
[2021-05-09 20:11] VITALS: BP 104/73
[2021-05-10 05:28] LABS: HEMATOCRIT 26.8 % (37.0-47.0); HEMOGLOBIN 8.9 gm/dL (12.0-15.0); MCH 30.8 pg (26.0-34.0); MCHC 33.2 g/dL (28.0-37.0); MCV 92.6 fL (80.0-100.0); RBC 2.9 mil/uL (4.20-5.00); RDW 14.9 % (10.5-14.5); WBC 6.4 thou/uL (4.0-11.0)
[2021-05-10 06:10] LABS: CALCIUM 8.7 mg/dL (8.5-10.1); CREATININE 0.7 mg/dL (0.6-1.0); MAGNESIUM 1.9 mg/dL (1.8-2.4)
--- NOTE | 2021-05-10 06:22 | NUR ---
Pt. rested quietly at intervals during the night when checked on during frequent rounds. She c/o abdominal pain and ivp pain med given (see emar) with some relief noted. Treatment done to abdomen as ordered. Up to the bathroom with gait belt and walker.
[2021-05-10 07:29] VITALS: BP 128/57
[2021-05-10 08:04] VITALS: BP 128/57
[2021-05-10] MEDS ORDERED: METOPROLOL TART25 MG PO (12:33)
[2021-05-10] MEDS ORDERED: ZOSYN 3.373.375 GM/1 IV (12:40)
[2021-05-10] MEDS ORDERED: PERCOCET 5-3251 EACH PO (12:42)
--- NOTE | 2021-05-10 14:40 | NUR ---
CARE TEAM INDICATED THAT PT IS MEDICALLY STABLE TO DC TO [facility] THIS DAY. PT HAVING HER PICC PLACED THIS AFTERNOON. [facility] ARRANGED FOR 1600. PT AND DTR ARE AWARE AND AGREEABLE. CHART COPY MADE. ORDERS AND NEGATIVE COVID TEST FAXED. NURSE GIVEN NUMBER FOR REPORT. NO OTHER CM INTERVENTION INDICATED. CASE CLOSED.
--- NOTE | 2021-05-10 15:48 | NUR ---
TOOK ON CARE OF PT AT 0700. PT HAS BEEN AMBULATING WELL AND DRAINAGE FROM DEHISCENT WOUND HAS BEEN BECOMING CLEARER AND SMALLER AMOUNT. PT WORKED WELL WITH THERAPY AND WAS ABLE TO HAVE NEW PICC LINE AND DRESSING CHANGE PRIOR TO DISCHARGE TO SKILLED FACILITY. PLAN TO HAVE HER CONTINUE WOUND MANAGEMENT AND IV THERAPY THERE. FALL PRECAUTIONS IN PLACE, PAIN CONTROLLED PRIOR TO PROCEDURE WITH IV PAIN MEDICATION. STILL INCONTINENT SOMETIMES WITH LIQUID BMS. WILL CONTINUE TO MONITOR.
--- NOTE | 2021-05-10 16:18 | NUR ---
VAT CONSULTED FOR PICC PLACEMENT PRIOR TO DISCHARGE. PT'S LABS,MEDS,HX,ORDER, CONSENT VERIFIED. ALTAGRACIA SMALLS WAS WIDELY PATENT WITH USG. SL BIOFLO PICC TRIMMED TO 45CM INSERTED TO 0CM, STAT CXR SHOWED LINE CURLED ON ITSELF. DID OTW EXCHANGE WITH POWER BARD PICC TRIMMED TO 45CM INSERTED TO 1CM EXTERNAL. STAT CXR CONFIRMED PLACEMENT. PICC RELEASED FOR IMMEDIATE USE PER PROTOCOL.
== END 2021-05-10 16:36 | DRG 329 ==
LOC: ER 07:30 → 4S 14:56 → 2N 14:56 → TBA 14:56 → EROBS 14:56 → TBA 04-21 09:29 → 4S 04-21 17:19 → 2N 04-24 09:50 → 4W 04-30 19:22
PROVIDERS: Internal Medicine; Nurse Practitioner Family; Student in an Organized Health Care Education/Training Program; ADMIT Hospitalist; ATTEND Hospitalist
PROC: 0WQF0ZZ Repair Abdominal Wall, Open Approach (ICD-10-PCS; principal; 2021-04-21)
PROC: 0BJT4ZZ Inspection of Diaphragm, Percutaneous Endoscopic Approach (ICD-10-PCS; principal; 2021-04-21)
PROC: 0DT80ZZ Resection of Small Intestine, Open Approach (ICD-10-PCS; principal; 2021-04-21)
PROC: 0DB68ZX Excision of Stomach, Via Natural or Artificial Opening Endoscopic, Diagnostic (ICD-10-PCS; 2021-04-24)
PROC: 05HY33Z Insertion of Infusion Device into Upper Vein, Percutaneous Approach (ICD-10-PCS; 2021-04-24)
PROC: 06H03DZ Insertion of Intraluminal Device into Inferior Vena Cava, Percutaneous Approach (ICD-10-PCS; 2021-04-28)
DX: K44.0 Diaphragmatic hernia with obstruction, without gangrene (principal); J96.01 Acute respiratory failure with hypoxia; E43 Unspecified severe protein-calorie malnutrition; I26.99 Other pulmonary embolism without acute cor pulmonale; K25.4 Chronic or unspecified gastric ulcer with hemorrhage; K22.11 Ulcer of esophagus with bleeding; K56.609 Unspecified intestinal obstruction, unspecified as to partial versus complete obstruction; D62 Acute posthemorrhagic anemia; I50.32 Chronic diastolic (congestive) heart failure; J98.11 Atelectasis; E87.0 Hyperosmolality and hypernatremia; Z68.41 Body mass index [BMI] 40.0-44.9, adult; Z20.822 Contact with and (suspected) exposure to COVID-19; N39.41 Urge incontinence; E78.5 Hyperlipidemia, unspecified; R53.81 Other malaise; G47.00 Insomnia, unspecified; N28.9 Disorder of kidney and ureter, unspecified; N28.1 Cyst of kidney, acquired; Z60.2 Problems related to living alone; I11.0 Hypertensive heart disease with heart failure; E87.6 Hypokalemia; E66.9 Obesity, unspecified; Z88.8 Allergy status to other drugs, medicaments and biological substances; Z90.710 Acquired absence of both cervix and uterus; K91.0 Vomiting following gastrointestinal surgery
CPT/HCPCS: 10045; 10047; 10081; 10194; 10195; 27000; 50010; 50093; 50101; 50411; 50455; 50555; 51412; 51489; 51708; 51712; 52265; 52266; 53307; 56462; 56527; 56528; 57103; 58574; 58586; 62110; 62900; 70005

== ENCOUNTER → 2021-05-30 | Outpatient (CLI) | payer OTHER ==
[~2021-05-30] MED LIST: BENICAR20 MG PO; BIMATOPROST2.5 ML OPHTHALMIC; FLONASE 0.05%50 MCG NASAL; HYDROCHLOROTH12.5 M2 PO; KLOR-CON M2020 MEQ PO; METOPROLOL TART25 MG PO; PERCOCET 5-3251 EACH PO; PROTONIX40 M2 PO; SIMVASTATIN80 MG PO; ZOSYN 3.373.375 GM/1 IV
== END ==
LOC: HYPER 09:37
PROVIDERS: ATTEND Emergency Medicine Emergency Medical Services
DX: T81.31XA Disruption of external operation (surgical) wound, not elsewhere classified, initial encounter (principal); L98.492 Non-pressure chronic ulcer of skin of other sites with fat layer exposed; R60.0 Localized edema; I10 Essential (primary) hypertension; M19.90 Unspecified osteoarthritis, unspecified site; E78.5 Hyperlipidemia, unspecified; E66.01 Morbid (severe) obesity due to excess calories; Z91.81 History of falling; Z87.891 Personal history of nicotine dependence; Z86.711 Personal history of pulmonary embolism; Z90.710 Acquired absence of both cervix and uterus; Z98.890 Other specified postprocedural states; Z68.33 Body mass index [BMI] 33.0-33.9, adult; Z79.899 Other long term (current) drug therapy; Y83.8 Other surgical procedures as the cause of abnormal reaction of the patient, or of later complication, without mention of misadventure at the time of the procedure; Y92.238 Other place in hospital as the place of occurrence of the external cause

== ENCOUNTER → 2021-06-13 | Outpatient (CLI) | payer OTHER | LOC: HYPER 10:26 | PROVIDERS: ATTEND Emergency Medicine Emergency Medical Services | DX: T81.31XD Disruption of external operation (surgical) wound, not elsewhere classified, subsequent encounter (principal); L98.492 Non-pressure chronic ulcer of skin of other sites with fat layer exposed; R60.0 Localized edema; I10 Essential (primary) hypertension; M19.90 Unspecified osteoarthritis, unspecified site; E78.5 Hyperlipidemia, unspecified; E66.01 Morbid (severe) obesity due to excess calories; Z87.891 Personal history of nicotine dependence; Z86.711 Personal history of pulmonary embolism; Z90.710 Acquired absence of both cervix and uterus; Z68.33 Body mass index [BMI] 33.0-33.9, adult; Y83.8 Other surgical procedures as the cause of abnormal reaction of the patient, or of later complication, without mention of misadventure at the time of the procedure ==

== ENCOUNTER → 2021-09-29 | Outpatient (CLI) | payer OTHER | LOC: SJCVC 13:26 | PROVIDERS: ATTEND Internal Medicine | DX: I10 Essential (primary) hypertension (principal); E78.5 Hyperlipidemia, unspecified; I05.9 Rheumatic mitral valve disease, unspecified; D50.9 Iron deficiency anemia, unspecified; E03.9 Hypothyroidism, unspecified; Z87.891 Personal history of nicotine dependence; Z88.8 Allergy status to other drugs, medicaments and biological substances; Z79.899 Other long term (current) drug therapy; Z86.16 Personal history of COVID-19; Z82.49 Family history of ischemic heart disease and other diseases of the circulatory system ==